=== PATIENT | female | born 1975 | race Caucasian/White ===

== ENCOUNTER 2020-03-11 13:40 | Observation (INO) | payer OTHER ==
[~2020-03-11] VITALS: Ht 152.4 cm; Wt 55.0 kg
--- NOTE | 2020-03-11 14:24 | NUR ---
THIS IS A 45 YO F W/ C/O DOG BITE. PT HAS FULL AVULSION LACERATION OF RT UPPR LIP. SENSATION INTACT. PT ABLE TO MAKE FACIAL EXPRESSIONS. PT CONVERSING W/O DIFFICULTY. 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 CHELLE FUNES AND AT BEDSIDE. TO CONSULT W/ SURGERY. PT RESTING ON [employer] W/ CALL LIGHT IN REACH AND FAMILY AT BEDSIDE. RESP EVEN AND UNLABORED NADN.
[2020-03-11] MEDS ORDERED: LIDOCAINE-MPF 1%, 5ML ONE (15:05)
[2020-03-11] MEDS ORDERED: BUPIVACAINE 0.25% ONE (15:06)
--- NOTE | 2020-03-11 15:08 | NUR ---
BUPIVICAINE REQUESTED FROM PHARMACY.
--- NOTE | 2020-03-11 15:12 | NUR ---
PT AMBULATED TO THE BR W/ A STEADY GAIT.
[2020-03-11] MEDS ORDERED: LIDOCAINE 1%, 10ML INFIL ONE (15:30)
[2020-03-11] MEDS ORDERED: BUPIVACAINE/PF-EPI 0.5% 1:200K INFIL ONE (15:30)
--- NOTE | 2020-03-11 16:00 | NUR ---
IN ROOM FOR EVAL.
[2020-03-11] MEDS ORDERED: AMPICILLIN/SULBACTAM 3 GM in SODIUM CHLORIDE 0.9% 100 ML IV ONE (16:30)
[2020-03-11] MEDS ORDERED: MIDAZOLAM 1 MG/ML, 2ML ONE (16:35)
--- NOTE | 2020-03-11 16:38 | NUR ---
PT RESTING ON GURNEY W/ CALL LIGHT IN REACH AND FAMILY AT BEDSIDE. UPDATED ON POC FOR OR. LATRELL HAYDEN.
--- NOTE | 2020-03-11 16:42 | NUR ---
REPORT GIEVEN TO OR. 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
[2020-03-11] MEDS ORDERED: BUPIVACAINE/PF-EPI 0.25% 1:200K ONE (16:50)
--- NOTE | 2020-03-11 16:52 | NUR ---
PT TO OR AT THIS TIME.
[2020-03-11] MEDS ORDERED: SODIUM CHLORIDE FLUSH 10ML SYR IVF ONE (17:00)
[2020-03-11] MEDS ORDERED: PROPOFOL 10 MG/ML, 20ML ONE (17:04)
[2020-03-11] MEDS ORDERED: ROCURONIUM 10MG/ML,5ML ONE (17:04)
[2020-03-11] MEDS ORDERED: CEFAZOLIN 1,000 MG ONE (17:04)
[2020-03-11] MEDS ORDERED: SUCCINYLCHOLINE 20 MG/ML, 10ML ONE (17:04)
[2020-03-11] MEDS ORDERED: FENTANYL PF 100 MCG/2ML ONE (17:11)
[2020-03-11] MEDS ORDERED: METHYLENE BLUE 10 MG/ML 10ML ONE (17:12)
[2020-03-11] MEDS ORDERED: KETOROLAC 30 MG/1 ML IV PRN (17:30)
[2020-03-11] MEDS ORDERED: FENTANYL PF 100 MCG/2ML IV PRN (17:30)
[2020-03-11] MEDS ORDERED: ALBUTEROL SULFATE 2.5 MG/3 ML NPPB PRN (17:30)
[2020-03-11] MEDS ORDERED: OXYcodone 5 MG/5 ML ORAL.SOL UDC PO PRN (17:30)
[2020-03-11] MEDS ORDERED: MEPERIDINE/PF 25MG/0.5ML IVPush PRN (17:30)
[2020-03-11] MEDS ORDERED: HYDROmorphone 1 MG/ML, 1ML INJ IV PRN (17:30)
[2020-03-11] MEDS ORDERED: LABETALOL 5MG/ML, 20ML IV PRN (17:30)
[2020-03-11] MEDS ORDERED: DIAZEPAM 5 MG/ML, 2ML IV PRN ×2 (17:30)
[2020-03-11] MEDS ORDERED: METOCLOPRAMIDE 5 MG/ML, 2ML IV PRN (17:30)
[2020-03-11] MEDS ORDERED: hydrALAzine 20 MG/ML, 1ML IV PRN (17:30)
[2020-03-11] MEDS ORDERED: ONDANSETRON 2MG/ML, 2ML IVPush PRN (17:30)
[2020-03-11] MEDS ORDERED: PROMETHAZINE 25 MG/ML, 1ML IV PRN (17:30)
[2020-03-11] MEDS ORDERED: BACITRACIN/POLYMIXIN B SULFATE OINT 14 GM ONE (17:34)
[2020-03-11] MEDS ORDERED: ACET1TAB64 PO (18:59)
[2020-03-11] MEDS ORDERED: AMOX1TAB61 PO (19:00)
[2020-03-11 19:44] VITALS: BP 119/81
== END 2020-03-11 20:12 | disposition home or self-care (01) ==
LOC: ED 16:16 → EDIP 16:46 → 4NE 18:45
PROVIDERS: ADMIT Specialist; ATTEND Specialist
DX: Z03.818 Encounter for observation for suspected exposure to other biological agents ruled out (principal); S01.511A Laceration without foreign body of lip, initial encounter; S01.551A Open bite of lip, initial encounter; N80.9 Endometriosis, unspecified; H81.09 Meniere's disease, unspecified ear; W54.0XXA Bitten by dog, initial encounter; Y93.89 Activity, other specified; Y92.89 Other specified places as the place of occurrence of the external cause
CPT/HCPCS: 13152; 96365; 96375; 99284; G0378; J0295; J0330; J0690; J1885; J2250; J2704; J3010; Q9968; U0001